=== PATIENT | male | born 1995 | race Two or more races ===

== ENCOUNTER 2018-02-02 22:07 | Emergency (ER) | payer OTHER ==
[~2018-02-02] VITALS: Ht 172.7 cm; Wt 108.9 kg
[~2018-02-02 22:07] MED LIST: ATIVAN0.5 MG ORAL; NAPROSYN500 M1 ORAL; NKM
[2018-02-02 22:12] VITALS: BP 122/85
--- NOTE | 2018-02-02 22:43 | Emergency Room Report ---
History of Present Illness General Chief Complaint: Laceration Source: Patient Present Illness HPI Patient presents with complaints of injury to the right hand He reports that there was a screw on the ground patient missed the door handle essentially fell forward puncturing the right hand on a screw that was on the ground Patient reports that this happened around 2:00 in the afternoon patient washed the area bandaged the area And as a discomfort persisted he presents to the ER Denies any chest pain denies any other elbow pain Denies any shoulder pain Pain is worse with attempts to make a fist with the hand Allergies: Coded Allergies: No Known Allergies (Unverified , 02/02/18) Patient History Past Medical History: see triage record Pertinent Family History: none Reviewed Nursing Documentation: PMH: Agreed; PSxH: Agreed Nursing Documentation-PMH Past Medical History: No Stated History Review of Systems All Other Systems: negative except mentioned in HPI Physical Exam Vital Signs Date Time Temp Pulse Resp B/P (MAP) Pulse Ox O2 Delivery O2 Flow Rate FiO2 02/02/18 22:12 98.4 86 15 122/85 96 Room Air Sp02 EP Interpretation: reviewed, normal General Appearance: well appearing, no apparent distress Head: normocephalic, atraumatic Eyes: bilateral eye PERRL, bilateral eye EOMI ENT: normal pharynx Neck: supple Respiratory: lungs clear Cardiovascular #1: regular rate, rhythm, no edema Gastrointestinal: non tender, soft Musculoskeletal: other - Puncture wound on the right hand just at the mid point of the hand superior to the thenar eminence, no associated expanding hematoma patient is able to approximate the thumb with other digits with some pain, sensory is intact Neurologic: alert, oriented x3, responsive Skin: other - As above Lymphatic: no adenopathy Procedures Laceration/Wound Repair Progress Patient has a puncture wound, approximately 2 mm Area was cleansed and prepped Antibiotic ointment applied and dressing on top of that Medical Decision Making Diagnostic Impression: Primary Impression: Puncture wound ER Course Patient has experienced a puncture type wound tetanus shot is provided along with antibiotics Area is cleansed and irrigated and washed Antibiotic ointment is applied and dressing on top of that There is no sign of expanding hematoma no obvious ecchymosis And patient requires close outpatient follow-up Last Vital Signs Date Time Temp Pulse Resp B/P (MAP) Pulse Ox O2 Delivery O2 Flow Rate FiO2 02/02/18 22:12 98.4 86 15 122/85 96 Room Air Status: improved Disposition: HOME, SELF-CARE Condition: Improved Scripts Amoxicillin/Potassium Clav 875-125* (AUGMENTIN 875-125 TABLET*) 1 Each Tablet 1 TAB ORAL TWICE A DAY, #10 TAB Prov: Darya Bess DO 02/02/18 Ibuprofen* (MOTRIN*) 600 Mg Tablet 600 MG ORAL Q8H PRN for For Pain, #20 TAB 0 Refills Prov: Darya Bess DO 02/02/18 Additional Instructions: Patient is provided with the discharge instructions notified to follow up with primary doctor in the next 2-3 days otherwise return to the er with any worsening symptoms. Please note that this report is being documented using [employer] technology. This can lead to erroneous entry secondary to incorrect interpretation by the dictating instrument. Darya Bess DO Feb 02, 2018 22:43
[2018-02-02] MEDS ORDERED: IBUPROFEN600 MG ORAL (22:44)
[2018-02-02] MEDS ORDERED: AUGMENTIN 875-1 EAC1 ORAL (22:44)
[2018-02-02] MEDS ORDERED: Augmentin 875mg Tab ORAL ONE (22:45)
[2018-02-02] MEDS ORDERED: Tetanus/Diptheria/Pertussis Vaccine 0.5ml Syr IM ONE (22:45)
[2018-02-02] MEDS ORDERED: Bacitracin Oint UD TOPIC ONE ×2 (22:45→22:47)
[2018-02-02 22:56] VITALS: BP 122/85
== END 2018-02-02 22:56 | disposition home or self-care (01) ==
LOC: EMR 22:21
DX: S61.431A Puncture wound without foreign body of right hand, initial encounter (principal); W45.8XXA Other foreign body or object entering through skin, initial encounter; Y92.89 Other specified places as the place of occurrence of the external cause; Y99.0 Civilian activity done for income or pay; Z23 Encounter for immunization
CPT/HCPCS: 90471; 90715; 99283